=== PATIENT | male | born 1970 | race Hispanic/Latino ===

== ENCOUNTER 2017-05-27 01:54 | Emergency (ER) | payer MEDICAID, MEDICARE ==
--- NOTE | 2017-05-27 03:23 | C.PDOC ---
History Of Present Illness Patient is a 47 y/o male, with a Hx of depression, who presents to the ED with a complaint of suicidal thoughts. Patient reports to have been discharged from [facility]. Denies any fever or chills. No other physical complaints at this time. Time Seen by Provider: 05/27/17 02:35 Chief Complaint (Nursing): Psychiatric Evaluation History Per: Patient History/Exam Limitations: no limitations Current Symptoms Are (Timing): Still Present Suicide/Self Injury Attempted (Context): None Associated Symptoms: Depression, Suicidal Thoughts. denies: Suicidal Plan Recent travel outside of the [place]: No Past Medical History Reviewed: Historical Data, Nursing Documentation, Vital Signs Vital Signs: Last Vital Signs Temp 98.1 F 05/27/17 06:00 Pulse 73 05/27/17 06:00 Resp 16 05/27/17 06:00 BP 127/87 05/27/17 06:00 Pulse Ox 98 05/27/17 06:00 - Medical History PMH: Anemia (no meds for same), Anxiety, Asthma, Bipolar Disorder, Bronchitis, Depression, HTN Denies: Diabetes, Hepatitis, HIV, Chronic Kidney Disease, Seizures, Sexually Transmitted Disease Surgical History: No Surg Hx Family History: States: No Known Family Hx - Social History Hx Tobacco Use: Yes (heavy smoker) Hx Alcohol Use: Yes (sporadic, (every 9 months).) Hx Substance Use: Yes - Immunization History Hx Tetanus Toxoid Vaccination: No Hx Influenza Vaccination: No Hx Pneumococcal Vaccination: No Review Of Systems Constitutional: Negative for: Fever, Chills Psych: Positive for: Depression, Suicidal ideation Physical Exam - Physical Exam Appears: Well, Non-toxic, No Acute Distress Skin: Normal Color, Warm, Dry Nose: Normal, No Discharge Oral Mucosa: Moist Chest: Symmetrical Cardiovascular: Rhythm Regular, No Murmur Respiratory: Normal Breath Sounds, No Rales, No Rhonchi, No Wheezing ED Course And Treatment - Laboratory Results Result Diagrams: 05/27/17 03:43 05/27/17 03:43 O2 Sat by Pulse Oximetry: 98 Progress Note: Blood work and UA ordered. Crisis notified. Disposition - Disposition Disposition Time: 07:11 Condition: STABLE Forms: [facility] (Turkish) - Clinical Impression Clinical Impression: Depression, Cocaine use disorder, severe, dependence - Scribe Statement The provider has reviewed the documentation as recorded by the Scribe Constance De La Paz All medical record entries made by the Scribe were at my direction and personally dictated by me. I have reviewed the chart and agree that the record accurately reflects my personal performance of the history, physical exam, medical decision making, and the department course for this patient. I have also personally directed, reviewed, and agree with the discharge instructions and disposition. Physician Patient Turnover Patient Signed Over To: Rosa Bobby Handoff Comments: pending psych dispo
[2017-05-27 03:53] LABS: BASO # 0.1 K/uL (0.0-0.2); BASO % 0.7 % (0.0-2.0); EOS # 0.2 K/uL (0.0-0.7); EOS % 2.2 % (0.0-4.0); HEMOGLOBIN 14.5 g/dL (12.0-18.0); LYMPH # 2.1 K/uL (1.0-4.3); LYMPH % 26.3 % (20.0-40.0); MEAN CORPUSCULAR HEMOGLOBIN 30.6 pg (27.0-31.0); MEAN CORPUSCULAR HGB CONC 34.4 g/dL (33.0-37.0); MEAN PLATELET VOLUME 8.3 fL (7.2-11.7); MONO # 0.6 K/uL (0.0-0.8); MONO % 7.3 % (0.0-10.0); NEUT % 63.5 % (50.0-75.0); RBC 4.74 Mil/uL (4.40-5.90); RED CELL DISTRIBUTION WIDTH 13.1 % (11.5-14.5); WHITE BLOOD COUNT 7.9 K/uL (4.8-10.8)
[2017-05-27 03:59] LABS: ALB/GLOB RATIO 1.5 (1.0-2.1); ALBUMIN 3.9 g/dL (3.5-5.0); ALT/SGPT 38 U/L (21-72); AST/SGOT 26 U/L (17-59); BLOOD UREA NITROGEN 15 mg/dL (9-20); CALCIUM 9.1 mg/dl (8.6-10.4); GFR AFRICAN-AMERICAN > 60; GFR NON-AFRICAN AMERICAN > 60
[2017-05-27 05:36] LABS: URINE BILIRUBIN NEGATIVE (NEGATIVE); URINE BLOOD NEGATIVE (NEGATIVE); URINE CLARITY Clear (Clear); URINE COLOR Yellow (YELLOW); URINE GLUCOSE (UA) 2+ mg/dL (Normal); URINE LEUKOCYTE ESTERASE NEG Leu/uL (Negative); URINE NITRATE NEGATIVE (NEGATIVE); URINE PROTEIN NEGATIVE (NEGATIVE); URINE UROBILINOGEN NORMAL mg/dL (0.2-1.0)
[2017-05-27 05:50] LABS: BARBITURATES, UR NEGATIVE (NEGATIVE); BENZODIAZEPINES, UR NEGATIVE (NEGATIVE); OPIATES, UR NEGATIVE (NEGATIVE); PHENCYCLIDINE, UR NEGATIVE (NEGATIVE)
--- NOTE | 2017-05-27 08:30 | RAD ---
Chest x-ray two views History: Psychiatric clearance. Comparison: None available. Findings: No focal infiltrate or effusion. Heart size within normal limits. Impression: No focal infiltrate or effusion.
[2017-05-27 10:41] VITALS: BP 120/76; PULSE 60; RESP 22; TEMP 98.7; O2SAT 96
== END 2017-05-27 11:20 | disposition short-term general hospital (02) ==
LOC: C.ER 01:54
DX: F32.9 Major depressive disorder, single episode, unspecified (principal); F14.20 Cocaine dependence, uncomplicated; F17.210 Nicotine dependence, cigarettes, uncomplicated
CPT/HCPCS: 36415; 71046; 80053; 81001; 85025; 99285; G0480

== ENCOUNTER 2017-06-22 16:45 | Inpatient (IN) | payer MEDICARE, MEDICAID ==
--- NOTE | 2017-06-22 18:12 | C.PDOC ---
History Of Present Illness 47 yo male w/PMHx of IDDN, depression, non-compliant with his medication, was transfer from [facility] for admission to service with Dx: Depression. At present time, pt appears appropriate, comfortable, not in any apparent distress. Transfer papers review, EKG, CXR- normal study. Blood work review, appears normal, no evidence of DKA. Time Seen by Provider: 06/22/17 16:51 Chief Complaint (Nursing): Psychiatric Evaluation History Per: Patient, Other (Transfer papers) Past Medical History Reviewed: Historical Data, Nursing Documentation, Vital Signs Vital Signs: Last Vital Signs Temp 97.8 F 06/22/17 18:12 Pulse 54 L 06/22/17 18:12 Resp 20 06/22/17 18:12 BP 120/74 06/22/17 18:12 Pulse Ox 98 06/22/17 18:12 - Medical History PMH: Anemia (no meds for same), Anxiety, Asthma, Bipolar Disorder, Bronchitis, Depression, HTN Denies: Diabetes, Hepatitis, HIV, Chronic Kidney Disease, Seizures, Sexually Transmitted Disease - [facility] Procedures GROUP PSYCHOTHERAPY (05/27/17) INDIV PSYCHOTHERAPY FOR SUBSTANCE ABUSE TREATMENT, SUPPORT (05/27/17) INDIV PSYCHOTHERAPY FOR SUBSTANCE ABUSE, MOTIVATION ENHANCE (05/27/17) Family History: States: Unknown Family Hx - Social History Hx Tobacco Use: Yes (heavy smoker) Hx Alcohol Use: No Hx Substance Use: Yes - Immunization History Hx Tetanus Toxoid Vaccination: No Hx Influenza Vaccination: No Hx Pneumococcal Vaccination: No Review Of Systems Except As Marked, All Systems Reviewed And Found Negative. Constitutional: Negative for: Fever, Chills Eyes: Negative for: Vision Change ENT: Negative for: Throat Pain Cardiovascular: Negative for: Chest Pain, Palpitations Respiratory: Negative for: Cough, Shortness of Breath, Wheezing Gastrointestinal: Negative for: Diarrhea, Melena, Hematochezia, Hematemesis Genitourinary: Negative for: Dysuria, Incontinence Musculoskeletal: Negative for: Neck Pain, Back Pain Skin: Negative for: Rash Psych: Positive for: Depression, Suicidal ideation Physical Exam - Physical Exam Appears: Well, Non-toxic, No Acute Distress Skin: Normal Color, Warm, Dry, No Rash Head: Normacephalic Eye(s): bilateral: PERRL Nose: No Flaring, No Discharge Oral Mucosa: Moist, No Drooling Throat: No Erythema, No Drooling Neck: Trachea Midline, Supple Cardiovascular: Rhythm Regular, No Murmur Respiratory: No Decreased Breath Sounds, No Accessory Muscle Use, No Stridor, No Wheezing Gastrointestinal/Abdominal: Soft, No Tenderness, No Distention, No Guarding, No Rebound Back: No CVA Tenderness Extremity: Normal ROM, No Deformity, No Swelling Neurological/Psych: Oriented x3, Normal Speech ED Course And Treatment - Laboratory Results Lab Interpretation: No Acute Changes O2 Sat by Pulse Oximetry: 98 Pulse Ox Interpretation: Normal Progress Note: Patient i stable for admission as arranged to service with Dx; Depression, suicidal ideation. Disposition - Disposition Disposition: HOSPITALIZED Disposition Time: 17:17 Condition: STABLE - Clinical Impression Clinical Impression: Depression, Suicidal ideation, Diabetes insipidus
--- NOTE | 2017-06-22 18:28 | PCM.BM ---
<AydinLoraine - Last Filed: 06/22/17 18:27> Treatment Plan Problems - Problems identified on initial assessmt Depression Date Initiated: 06/22/17 Time Initiated: 18:28 Assessment reference: NA Status: Active Treatment assets and liabiliti Patient Assests: adapts well, cooperative (pt. refused to meet with right for majority of hospitalization), educated, resourceful, self-reliant, ADL independent, cognitively intact Patient Liabilities: live alone, dietary restrictions, substance abuse - Milieu Protocol Maintain good personal hygiene: daily Encourage regular showers, daily Remind patient to perform daily oral care Conduct patient checks and document Observation sheet: Q15 minutes Maintain personal safety: every shift Educate patient to report safety concerns to staff, every shift Monitor environment for contraband/sharps Medication safety: Monitor for expected outcome, potential side effects: every shift, Assess barriers to learning: every shift, Assess readiness for medication education: every shift <Virginia Garcia - Last Filed: 06/26/17 11:36> Family Contact Family involvement: Famliy/SO not involved - Goals for Treatment Patient goals for treatment: "I want to go to [facility]." Discharge/Continuing Care - Education Needs Education Needs: Patient Medication, Patient Coping Skills, Patient Placement options, Patient Community resources - Discharge Discharge Criteria: Tolerates medication w/o severe side effects, Reduction of target symptoms Discharge to:: Substance Abuse Rehab - Treatment Team Participation Discussed with Family/SO: No Was Patient/Family/SO present at Treatment Team Meeting: Yes <KaiTe - Last Filed: 06/26/17 11:38> - Diagnosis (1) Bipolar disorder, current episode mixed, severe, without psychotic features Status: Acute Interventions: 06/26/17 11:37 * Assess/adjust medications daily and /or as needed * See patient on an individual basis 7x/week to assess level of manic behaviors and stability * Discuss risks, benefits, side effects and alternatives of medications * (2) Cocaine use disorder, severe, dependence Status: Acute Interventions: 06/26/17 11:37 * Assess 7x/week regarding severity of withdrawal * Educate regarding risks, benefits, side effects and alternatives of medications * Use Motivational Interviewing for abstinence * Use CBT for relapse prevention * Medication management for withdrawal symptoms * Encourage medication assisted treatment *
[2017-06-22] MEDS ORDERED: Albuterol HFA 90 mcg/actuation (8 g) IH SCH (22:15)
[2017-06-23] MEDS: Albuterol-Ipratrop 3 mg / 0.5 (3 ml) UD INH PRN ×2 (04:02→19:15)
[2017-06-23] MEDS ORDERED: GlipiZIDE 10 mg SR Tab PO SCH (07:30)
[2017-06-23] MEDS ORDERED: Albuterol HFA 90 mcg/actuation (8 g) IH PRN (08:00)
[2017-06-23] MEDS ORDERED: Home Med 1 UNIT (Metformin [Glucophage] 1,000 MG) PO SCH (10:00)
[2017-06-23] MEDS ORDERED: Fluticasone-Salmeterol 250-50mcg Diskus IH SCH (10:00)
[2017-06-23] MEDS ORDERED: Home Med 1 UNIT (Budesonide/Formoterol Fumarate [Symbicort 160-4.5 Mcg Inhaler] 1 AER) IH SCH (10:00)
[2017-06-23] MEDS: GlipiZIDE 10 mg SR Tab PO SCH ×2 (10:02→17:26)
--- NOTE | 2017-06-23 11:43 | PCM.PSYCH ---
Initial Psychiatric Evaluation - Initial Psychiatric Evaluation Type of Admission: Voluntary Legal Status: Capacity Chief Complaint (in patient's own words): "I feel depressed" History of Present Illness and Precipitating Events: 47 year old male with past medical history of bipolar, depression, diabetes, asthma and HLD, , no children, homeless, not currently working (previously works about a month ago at a [employer] in [place]). Patient states for the past week he has had thoughts of killing himself. He stated yesterday he walked in the middle of the street and did not care if he was hit by a car or not. Patient states he lost his August 22, 2016 due to cancer and since then he has been lonely and depressed. He states currently he denies thoughts of hurting himself, others, or audio hallucinations. He states sometimes he sees angels pass by him but otherwise he denies visual hallucinations. Patient states prior to his passing he was sober for 25 years and he relapsed 3 months after her passing. He went to detox once when he was 19 years of age. He uses cocaine (smokes) about 300$ per day and drinks beer about one a month. Patient smokes about 4 cigarettes per day. PMD: Dr. Andrews Medical History:diabetes, asthma and HLD, concussions, heart murmur when he was a baby Psych History: Hyperactive disorder, bipolar, depression Family History: Mom - flashbacks Allergies: Thioridazine - seizures Current Medications: Active Medications Generic Name Dose Route Start Last Admin Trade Name Freq PRN Reason Stop Dose Admin Albuterol 2 puff 06/23/17 08:00 Ventolin Hfa 90 Mcg/Actuation (8 G) IH RQ6 PRN Shortness of Breath Albuterol/Ipratropium 3 ml 06/22/17 18:24 06/23/17 04:02 Duoneb 3 Mg/0.5 Mg (3 Ml) Ud INH 3 ml RQ4 PRN Administration Shortness of Breath Ascorbic Acid 500 mg 06/23/17 10:00 06/23/17 10:04 Vitamin C 500 Mg Tab PO Not Given DAILY ELIZABETH Cyanocobalamin 1,000 mcg 06/29/17 10:00 Vitamin B12 1000 Mcg Tab PO QWK ELIZABETH Diphenhydramine HCl 25 mg 06/23/17 10:00 06/23/17 10:04 Benadryl PO Not Given BID [facility] Ergocalciferol 1 cap 06/29/17 10:00 Drisdol 50,000 Intl Units Cap PO QWK [facility] Ferrous Sulfate 325 mg 06/23/17 10:00 06/23/17 10:04 Feosol PO Not Given DAILY [facility] Gabapentin 300 mg 06/23/17 10:00 06/23/17 10:04 Neurontin PO Not Given BID [facility] Glipizide 10 mg 06/23/17 07:30 06/23/17 10:02 Glucotrol Xl PO Not Given ACBD [facility] Home Med 1 aer 06/23/17 10:00 Budesonide/Formoterol Fumarate [Symbicort 160-4.5 Mcg Inhaler] IH DAILY [facility] Ibuprofen 600 mg 06/22/17 18:24 Motrin Tab PO Q6 PRN Pain, moderate (4-7) Lisinopril 2.5 mg 06/23/17 10:00 06/23/17 10:04 Zestril PO Not Given DAILY [facility] Loratadine 10 mg 06/23/17 10:00 Claritin PO DAILY PRN Allergy symptoms Metformin HCl 1,000 mg 06/23/17 10:00 06/23/17 10:04 Glucophage PO Not Given BID [facility] Rosuvastatin Calcium 5 mg 06/22/17 22:15 06/22/17 23:00 Crestor PO Not Given HS [facility] Fluticasone/Salmeterol 1 puff 06/23/17 10:00 06/23/17 10:03 Advair Diskus 250/50 IH Not Given DAILY [facility] Trazodone HCl 50 mg 06/22/17 18:24 Desyrel PO HS PRN Insomnia Past Psychiatric History - Past Psychiatric History Pertinent Medical Hx (Current Medical&Sleep Prob, Allergies): Allergies Allergy/AdvReac Type Severity Reaction Status Date / Time chlorpromazine Allergy seizure Verified 06/20/17 23:45 [From Thorazine] milrinone Allergy Verified 06/22/17 17:03 thioridazine [From Mellaril] Allergy seizure Verified 06/20/17 23:45 Albuterol HFA [Ventolin HFA 90 mcg/actuation (8 g)] 2 puff IH [id number] 03/21/17 Ascorbic Acid [Vitamin C] 500 mg PO DAILY 03/21/17 Cholecalciferol [Vitamin D 1000 IU] 50,000 unit PO QWK 03/21/17 Cyanocobalamin (Vitamin B-12) [B-12] 1,000 mcg PO QWK 03/21/17 Ergocalciferol (Vitamin D2) [Ergocal] 1.25 unit PO QWK 03/21/17 Insulin Detemir [Levemir] 0 units SC DAILY 03/21/17 Pyridoxine HCl (Vitamin B6) [B-6] 25 mg PO DAILY 03/21/17 Rosuvastatin Calcium [Crestor] 5 mg PO HS tab 03/25/17 Atorvastatin [Lipitor] 10 mg PO HS #0 tab 06/01/17 Escitalopram [Lexapro] 15 mg PO DAILY 30 Days #90 tab 06/01/17 Ferrous Sulfate [Feosol] 325 mg PO DAILY tab 06/01/17 Gabapentin [Neurontin] 300 mg PO BID 30 Days #60 cap 06/01/17 GlipiZIDE SR [Glucotrol XL] 10 mg PO ACBD 15 Days #15 tab 06/01/17 Lisinopril [Zestril] 2.5 mg PO DAILY 15 Days #7 tab 06/01/17 MetFORMIN [glucoPHAGE] 1,000 mg PO BID 15 Days #30 tab 06/01/17 hydrOXYzine HCl [Atarax] 25 mg PO BID 30 Days #60 tab 06/01/17 traZODone [Desyrel] 50 mg PO HS PRN 30 Days #30 tab 06/01/17 Budesonide/Formoterol Fumarate [Symbicort] 1 aer IH DAILY 06/22/17 DiphenhydrAMINE [Benadryl] 25 mg PO BID 06/22/17 Fluticasone/Salmeterol [Advair 250-50 Diskus] 1 each IH DAILY 06/22/17 Levofloxacin [Levaquin] 500 mg PO DAILY 06/22/17 Loratadine [Alavert] 10 mg PO PRN PRN 06/22/17 Simvastatin [Zocor] 20 mg PO HS 06/22/17 Topiramate 500 mg PO BID 06/22/17 Review of Systems - Cardiovascular Cardiovascular: UNREMARKABLE - Gastrointestinal Gastrointestinal: UNREMARKABLE - Neurological Neurological: UNREMARKABLE - Psychiatric Psychiatric: Anxiety, Depression. absent: Hallucinations, Homicidal Ideation, Suicidal Ideation, Visual Hallucinations Mental Status Examination - Personal Presentation Personal Presentation: Looks stated age - Affect Affect: Constricted - Motor Activity Motor Activity: Calm - Reliability in Providing Information Reliability in Providing Information: Good - Speech Speech: Organized - Mood Mood: Depressed, Anxious - Formal Thought Process Formal Thought Process: No Impairment - Cognitive Functions Orientation: Person, Place, Situation, Time Sensorium: Alert Attention/Concentration: Attentive Judgement: Intact, as evidence by: Insight regarding need for hospitalization Memory: Recent intact, as evidence by: Ability to recall events of the day - Limitations Limitations: Living alone DSM 5 DX - DSM 5 DSM 5 Diagnosis: Bipolar Disorder Depression Disorder Alcohol use d/o moderate - Recommended/Plan of Treatment Treatment Recommendations and Plan of Treatment: Albuterol Advair Benadryl Glipizide Lisinopril Metformin Rosuvastatin Gabapentin 300mg PO BID As needed medications All risks, benefits and alternatives of the meds discussed, and the pt agreed and understood. Attend groups and activities Supportive therapy and psychoeducation [place] for abstinence CBT for relapse prevention Encourage MAT Refer to rehab or IOP, and self-help groups 34 min
[2017-06-23] MEDS: Fluticasone-Salmeterol 250-50mcg Diskus IH SCH (19:56)
[2017-06-24] MEDS: Fluticasone-Salmeterol 250-50mcg Diskus IH SCH ×2 (08:19→20:05)
[2017-06-24] MEDS: GlipiZIDE 10 mg SR Tab PO SCH ×2 (08:20→17:35)
[2017-06-24] MEDS: Divalproex 250 mg DR Tab PO SCH ×2 (10:38→17:07)
--- NOTE | 2017-06-24 14:12 | PCM.PYCHPN ---
Psychiatric Progress Note - Psychiatric Progress Note Patient seen today, length of contact: 15 minutes Patient Chief Complaint: I'm feeling little better. I don't want to take Depakote as its not doing anything. Problems Identified/Issues Discussed: Patient seen, chart reviewed, case discussed with the staff. Issues related to illness and treatment were discussed with the patient. Reported compliant with treatment with no adverse affects. Reported feeling little better. Mood reported as okay. Affect appropriate. Patient is becoming better, needs more time. Stabilization. Awake alert oriented 3, no delusions, no auditory or visual hallucinations, no suicidal ideations or homicidal ideations at the time of evaluation. Medical Problems: Diabetes mellitus Asthma HDL Diagnostic Results: Reviewed DSM 5 Symptoms Update: Some improvement with treatment Medication Change: No Medical Record Reviewed: Yes Mental Status Examination - Cognitive Function Orientation: Person, Place, Situation, Time Memory: Intact Attention: WNL Concentration: WNL Association: WN Fund of Knowledge: [facility] Decription of patient's judgement and insights: Fair - Mood Mood: Depressed (Less than before) - Affect Affect: Depressed - Speech Speech: Appropriate - Formal Thought Process Formal Thought Process: No Impairment Psychotic Thoughts and Behaviors: None - Suicidal Ideation Suicidal Ideation: No - Homicidal Ideation Homicidal Ideation: No Goal/Treatment Plan - Goal/Treatment Plan Need for Continued Stay: Remain at risks for inpatient hospitalization, Discharge may exacerbated symptoms, Severe functional impairment Progress Toward Problem(s) and Goals/Treatment Plan: Patient education Supportive therapy Continue treatment as before Estimated Date of D/C: 06/30/17 - Smoking Cessation Smoking Cessation Initiated: No
[2017-06-24] MEDS: Albuterol-Ipratrop 3 mg / 0.5 (3 ml) UD INH PRN (18:22)
[2017-06-25] MEDS: GlipiZIDE 10 mg SR Tab PO SCH ×2 (08:32→16:14)
[2017-06-25] MEDS: Fluticasone-Salmeterol 250-50mcg Diskus IH SCH ×2 (08:33→20:28)
[2017-06-25] MEDS: Divalproex 250 mg DR Tab PO SCH ×2 (09:56→17:29)
--- NOTE | 2017-06-25 11:23 | PCM.PYCHPN ---
Psychiatric Progress Note - Psychiatric Progress Note Patient seen today, length of contact: 15 minutes Patient Chief Complaint: I'm feeling little better. Problems Identified/Issues Discussed: Patient seen, chart reviewed, case discussed with the staff. Issues related to illness and treatment were discussed with the patient. Reported compliant with treatment with no adverse affects. Reported feeling better. Mood reported as okay. Affect appropriate. Patient is becoming better, needs more time. Stabilization. Patient brought sugar is still high. According to nursing staff patient is not taking care of his blood sugar and is drinking a lot of to juices. Issues discussed with the patient to control his blood sugar. Awake alert oriented 3, no delusions, no auditory or visual hallucinations, no suicidal ideations or homicidal ideations at the time of evaluation. Medical Problems: Diabetes mellitus Asthma HDL Diagnostic Results: Reviewed DSM 5 Symptoms Update: Some improvement with treatment Medication Change: No Medical Record Reviewed: Yes Mental Status Examination - Cognitive Function Orientation: Person, Place, Situation, Time Memory: Intact Attention: WNL Concentration: WNL Association: WN Fund of Knowledge: [facility] Decription of patient's judgement and insights: Fair - Mood Mood: Depressed (Less than before) - Affect Affect: Other (Appropriate) - Speech Speech: Appropriate - Formal Thought Process Formal Thought Process: No Impairment Psychotic Thoughts and Behaviors: None - Suicidal Ideation Suicidal Ideation: No - Homicidal Ideation Homicidal Ideation: No Goal/Treatment Plan - Goal/Treatment Plan Need for Continued Stay: Remain at risks for inpatient hospitalization, Discharge may exacerbated symptoms, Severe functional impairment Progress Toward Problem(s) and Goals/Treatment Plan: Patient education Supportive therapy Continue treatment as before Estimated Date of D/C: 06/30/17 - Smoking Cessation Smoking Cessation Initiated: No
[2017-06-26] MEDS: Fluticasone-Salmeterol 250-50mcg Diskus IH SCH ×2 (07:56→19:42)
[2017-06-26] MEDS: GlipiZIDE 10 mg SR Tab PO SCH ×2 (07:56→16:46)
[2017-06-26] MEDS: Divalproex 250 mg DR Tab PO SCH (10:55)
--- NOTE | 2017-06-26 11:36 | PCM.PYCHPN ---
Psychiatric Progress Note - Psychiatric Progress Note Patient seen today, length of contact: 15 minutes Medication Change: No Medical Record Reviewed: Yes Mental Status Examination - Cognitive Function Orientation: Person, Place, Situation, Time Memory: Intact Attention: WNL Concentration: WNL Association: WNL Fund of Knowledge: WNL - Mood Mood: Depressed (Less than before) - Affect Affect: Other (Appropriate) - Speech Speech: Appropriate - Formal Thought Process Formal Thought Process: No Impairment - Suicidal Ideation Suicidal Ideation: No - Homicidal Ideation Homicidal Ideation: No Goal/Treatment Plan - Goal/Treatment Plan Need for Continued Stay: Remain at risks for inpatient hospitalization, Discharge may exacerbated symptoms, Severe functional impairment Estimated Date of D/C: 06/30/17
[2017-06-26] MEDS: Divalproex 500 mg DR Tab PO SCH (17:32)
[2017-06-27] MEDS: GlipiZIDE 10 mg SR Tab PO SCH ×2 (07:38→17:18)
[2017-06-27] MEDS: Fluticasone-Salmeterol 250-50mcg Diskus IH SCH ×2 (07:45→20:20)
[2017-06-27 08:45] VITALS: RESP 20
[2017-06-27] MEDS: Divalproex 500 mg DR Tab PO SCH ×2 (10:30→18:17)
[2017-06-27] MEDS: Albuterol-Ipratrop 3 mg / 0.5 (3 ml) UD INH PRN (12:32)
--- NOTE | 2017-06-27 16:13 | PCM.PYCHPN ---
Psychiatric Progress Note - Psychiatric Progress Note Patient seen today, length of contact: 15 minutes Patient Chief Complaint: I am feeling depressed. Problems Identified/Issues Discussed: Patient seen and evaluated, chart reviewed and discussed with the nurse. He reports he still has depressed mood. He states he is sleeping okay. As per the staff patient remained irritable and agitated. He had a verbal altercation with the staff. He reports some improvement in her racing thoughts and flight of ideas. Patient is compliant with medications and denies any side effects. Symptoms are improving but needs more time to stabilize. Support and psychoeducation given. Medication Change: No Medical Record Reviewed: Yes Mental Status Examination - Cognitive Function Orientation: Person, Place, Situation, Time Memory: Intact Attention: WNL Concentration: WNL Association: WNL Fund of Knowledge: WNL - Mood Mood: Depressed (Less than before) - Affect Affect: Other (Appropriate) - Speech Speech: Appropriate - Formal Thought Process Formal Thought Process: No Impairment - Suicidal Ideation Suicidal Ideation: No - Homicidal Ideation Homicidal Ideation: No Goal/Treatment Plan - Goal/Treatment Plan Need for Continued Stay: Remain at risks for inpatient hospitalization, Discharge may exacerbated symptoms, Severe functional impairment Progress Toward Problem(s) and Goals/Treatment Plan: Bipolar Disorder Alcohol use d/o moderate Albuterol Advair Benadryl Glipizide Lisinopril Metformin Rosuvastatin Gabapentin 300mg PO BID Depakote 500 mg by mouth twice a day As needed medications All risks, benefits and alternatives of the meds discussed, and the pt agreed and understood. Attend groups and activities Supportive therapy and psychoeducation [place] for abstinence CBT for relapse prevention Encourage MAT Refer to rehab or IOP, and self-help groups Estimated Date of D/C: 06/30/17
[2017-06-27] MEDS ORDERED: Insulin Detemir 100 units/ml Vial (Levemir) SC SCH (18:00)
[2017-06-28] MEDS: Fluticasone-Salmeterol 250-50mcg Diskus IH SCH ×2 (08:24→21:02)
[2017-06-28] MEDS: GlipiZIDE 10 mg SR Tab PO SCH ×2 (08:24→17:40)
[2017-06-28] MEDS: Insulin Detemir 100 units/ml Vial (Levemir) SC SCH ×2 (08:38→21:18)
[2017-06-28] MEDS: Divalproex 500 mg DR Tab PO SCH ×3 (09:06→17:41)
[2017-06-29] MEDS: GlipiZIDE 10 mg SR Tab PO SCH (07:32)
[2017-06-29] MEDS: Fluticasone-Salmeterol 250-50mcg Diskus IH SCH (08:01)
[2017-06-29] MEDS: Insulin Detemir 100 units/ml Vial (Levemir) SC SCH (08:58)
[2017-06-29] MEDS: Divalproex 500 mg DR Tab PO SCH (09:09)
[2017-06-29] MEDS ORDERED: ERGOCALCIFEROL PO SCH (10:00)
[2017-06-29] MEDS ORDERED: Ergocalciferol 50,000 Intl Units Cap PO SCH (10:00)
--- NOTE | 2017-06-29 10:55 | PCM.PYCHDC ---
Mental Status Examination - Mental Status Examination Orientation: Person, Place, Situation, Time Memory: Intact Mood: Neutral Affect: Constricted Speech: Soft Attention: WNL Concentration: WNL Association: WNL Fund of Knowledge: WNL Formal Thought Process: No Impairment Description of patient's judgement and insight: good, fair Psychotic Thoughts and Behaviors: denies any AVH Suicidal Ideation: No Current Homicidal Ideation?: No Discharge Summary - Discharge Note Reason for Hospitalization: 47 year old male with past medical history of bipolar, depression, diabetes, asthma and HLD, , no children, homeless, not currently working (previously works about a month ago at a [employer] in [place]). Patient states for the past week he has had thoughts of killing himself. He stated yesterday he walked in the middle of the street and did not care if he was hit by a car or not. Patient states he lost his August 22, 2016 due to cancer and since then he has been lonely and depressed. He states currently he denies thoughts of hurting himself, others, or audio hallucinations. He states sometimes he sees angels pass by him but otherwise he denies visual hallucinations. Patient states prior to his passing he was sober for 25 years and he relapsed 3 months after her passing. He went to detox once when he was 19 years of age. He uses cocaine (smokes) about 300$ per day and drinks beer about one a month. Patient smokes about 4 cigarettes per day. Laboratory Data: Abnormal Lab Results 06/28/17 06/28/17 06/29/17 16:10 21:17 07:34 POC Glucose (mg/dL) 247 H 245 H 124 H Consultations:: List each consultation separately and include: 1. Reason for request. 2. Findings. 3. Follow-up Summary of Hospital Course include:: 1. Description of specific treatment plan utilized for patients during their course of treatmen. 2. Summarize the time- course for resolution of acute symptoms and/or regressed behaviors. 3. Describe issues identified and worked on during hospitalization. 4. Describe medication utilized. 5. Describe medical problems identified and treated. 6. Reassessment of suicide risk - Diagnosis (1) Bipolar disorder, current episode mixed, severe, without psychotic features Current Visit: Yes Status: Acute (2) Cocaine use disorder, severe, dependence Current Visit: No Status: Acute - Final Diagnosis (DSM 5) Condition upon Discharge: STABLE DSM 5: Bipolar Disorder Depression Disorder Alcohol use d/o moderate Disposition: HOME/ ROUTINE Follow-up Treatment Plan: Bipolar Disorder Alcohol use d/o moderate Albuterol Advair Benadryl Glipizide Lisinopril Metformin Rosuvastatin Gabapentin 300mg PO BID Depakote 500 mg by mouth twice a day As needed medications All risks, benefits and alternatives of the meds discussed, and the pt agreed and understood. Attend groups and activities Supportive therapy and psychoeducation CA for abstinence CBT for relapse prevention Encourage MAT Refer to rehab or IOP, and self-help groups Prescriptions/Medication Reconciliation: Divalproex [Depakote DR] 500 mg PO BID #60 tcp Gabapentin [Neurontin] 300 mg PO BID 30 Days #60 cap traZODone [Desyrel] 50 mg PO HS PRN #30 tab PRN Reason: Insomnia
[2017-06-29 11:11] VITALS: BP 127/66; PULSE 58
[2017-06-29 12:22] VITALS: TEMP 98.6; O2SAT 98
== END 2017-06-29 12:29 | disposition home or self-care (01) | DRG 885 ==
LOC: C.ER 16:45 → C.5E 17:18
PROVIDERS: ADMIT Psychiatry & Neurology Psychiatry; ATTEND Psychiatry & Neurology Psychiatry
DX: F31.63 Bipolar disorder, current episode mixed, severe, without psychotic features (principal); R45.851 Suicidal ideations; F14.20 Cocaine dependence, uncomplicated; F10.20 Alcohol dependence, uncomplicated; Z91.14 Patient's other noncompliance with medication regimen; E11.9 Type 2 diabetes mellitus without complications; D64.9 Anemia, unspecified; F41.9 Anxiety disorder, unspecified; J45.909 Unspecified asthma, uncomplicated; I10 Essential (primary) hypertension; F17.210 Nicotine dependence, cigarettes, uncomplicated; E78.5 Hyperlipidemia, unspecified; Z59.0 Homelessness; Z88.8 Allergy status to other drugs, medicaments and biological substances